=== PATIENT | female | born 1955 | race Caucasian/White ===

== ENCOUNTER 2016-08-03 07:07 | Inpatient (IN) | payer BC ==
[2016-07-12 08:24] VITALS: Ht 166.4 cm; Wt 138.8 kg
[2016-07-12 09:00] VITALS: BP_SYST 138; RESP 20; TEMP 97.8
[2016-08-03] VITALS (22 sets, daily range): BP systolic 94–192; RESP 16–23; TEMP 97–98.4
[~2016-08-03] VITALS: Ht 166.4 cm; Wt 138.8 kg
[2016-08-03] MEDS ORDERED: ROPIVACAINE 0.5% 139 MG, EPINEPHrine 1:1,000 0.2 MG, KETOROLAC INJ 30 MG, MORPHINE 10 MG SUBQ ONE ×4 (08:15)
[2016-08-03] MEDS ORDERED: CEFAZOLIN 3,000 MG in SODIUM CHLORIDE 0.9% 100 ML IV ONE (08:15)
[2016-08-03] MEDS ORDERED: Tranexamic Acid 100 MG in SODIUM CHLORIDE 0.9% 100 ML IV ONE ×4 (08:45)
[2016-08-03] MEDS ORDERED: LACT RINGERS 1,000 ML IV SCH ×2 (09:05→11:40)
[2016-08-03] MEDS ORDERED: GLYCOPYRROLATE 0.2 MG/ML VIAL IV ONE ×2 (09:05→10:10)
[2016-08-03] MEDS ORDERED: ONDANSETRON 4 MG VIAL IV ONE (09:05)
[2016-08-03] MEDS ORDERED: SCOPOLAMINE PATCH TRANSDERM ONE (09:05)
[2016-08-03] MEDS ORDERED: MIDAZOLAM 2 MG/2 ML INJ IV ONE ×2 (09:05→09:25)
[2016-08-03] MEDS ORDERED: LIDOCAINE 1% BUFFERED 1 ML SYR INTRADERM PRN (09:05)
[2016-08-03] MEDS ORDERED: MIDAZOLAM 2 MG/2 ML INJ ONE ×2 (09:24→09:28)
[2016-08-03] MEDS ORDERED: MEPERIDINE 25 MG/ML IV ONE (09:25)
[2016-08-03] MEDS ORDERED: ONDANSETRON 4 MG VIAL IV PRN ×2 (10:05→11:40)
[2016-08-03] MEDS ORDERED: MORPHINE 2 MG/ML SYR IV PRN (10:05)
[2016-08-03] MEDS ORDERED: MEPERIDINE 25 MG/ML IV PRN (10:05)
[2016-08-03] MEDS ORDERED: OXYCODONE 5 MG TAB PO PRN (10:05)
[2016-08-03] MEDS ORDERED: MORPHINE 4 MG/ML SYR IV PRN (10:05)
[2016-08-03] MEDS ORDERED: ROCURONIUM 50 MG VIAL IV ONE (10:10)
[2016-08-03] MEDS ORDERED: SUCCINYLCHOLINE 20 MG/ML VL IV ONE (10:10)
[2016-08-03] MEDS ORDERED: ESMOLOL 100 MG/10 ML VL IV ONE (10:10)
[2016-08-03] MEDS ORDERED: PROPOFOL 20 ML PER ML IV ONE (10:10)
[2016-08-03] MEDS ORDERED: NEOSTIGMINE 10 MG/10 ML VIAL IV ONE (10:10)
[2016-08-03] MEDS ORDERED: FENTANYL 100 MCG/2 ML AMP IV ONE (10:10)
[2016-08-03] MEDS ORDERED: ACETAMINOPHEN 1,000 MG/100 ML IV ONE (10:10)
[2016-08-03] MEDS ORDERED: LIDOCAINE 2% SYR 5 ML IV ONE (10:10)
[2016-08-03] MEDS ORDERED: KETAMINE INJ 50 MG/ML VIAL IV ONE (10:10)
[2016-08-03] MEDS ORDERED: BACITRACIN 50,000 UNITS INJ IRRIG ONE (10:16)
[2016-08-03] MEDS ORDERED: BUPIVACA/EPI 0.5% 50ML EPIDURAL ONE (10:17)
[2016-08-03] MEDS ORDERED: TEMAZEPAM 15 MG CAP PO PRN (11:40)
[2016-08-03] MEDS ORDERED: DIPHENHYDRAMINE 25 MG CAP PO PRN (11:40)
[2016-08-03] MEDS ORDERED: KETOROLAC 30 MG/ML VIAL IV PRN (11:40)
[2016-08-03] MEDS ORDERED: ACETAMINOPHEN 325 MG TAB PO PRN (11:40)
[2016-08-03] MEDS: DILAUDID 1 MG/ML AMP IV PRN ×2 (11:47→12:05)
[2016-08-03] MEDS ORDERED: DEXTROSE 50% SYRINGE 50 ML IV PRN (14:00)
[2016-08-03] MEDS ORDERED: GLUCAGON 1 MG VIAL IM PRN (14:00)
[2016-08-03] MEDS: BUPROPION SR 150 MG TAB PO SCH (14:29)
[2016-08-03] MEDS: amLODIPine 2.5 MG TAB PO SCH (14:29)
[2016-08-03] MEDS: LEVOTHYROXINE 0.15 MG TAB PO SCH (14:30)
[2016-08-03] MEDS: FLUOXETINE 20 MG CAP PO SCH (14:30)
[2016-08-03] MEDS: MORPHINE 2 MG/ML SYR IV PRN ×2 (14:48→20:21)
[2016-08-03] MEDS: CEFAZOLIN 2,000 MG in SODIUM CHLORIDE 0.9% 100 ML IV SCH ×2 (16:27→21:00)
[2016-08-03] MEDS: LISINOPRIL/HCTZ 10/12.5 TAB PO SCH (16:27)
[2016-08-03] MEDS ORDERED: SALINE FLUSH 10 ML FLUSH PRN (19:20)
[2016-08-03] MEDS: SALINE FLUSH 10 ML FLUSH SCH (20:00)
[2016-08-03] MEDS: PANTOPRAZOLE 40 MG TAB PO SCH (20:21)
[2016-08-03] MEDS: GABAPENTIN 600 MG TAB PO SCH (20:21)
[2016-08-03] MEDS: ROSUVASTATIN 20 MG TAB PO SCH (20:21)
[2016-08-03] MEDS: SENNA 8.6 MG TAB PO SCH (20:21)
[2016-08-03] MEDS: DOCUSATE SOD 100 MG CAP PO SCH (20:21)
[2016-08-03] MEDS: clonazePAM 0.5 MG TAB PO SCH (20:21)
[2016-08-04 03:11] VITALS: BP_SYST 105; RESP 18; TEMP 98.4
[2016-08-04] MEDS: CEFAZOLIN 2,000 MG in SODIUM CHLORIDE 0.9% 100 ML IV SCH ×2 (03:32→09:59)
[2016-08-04] MEDS: LEVOTHYROXINE 0.15 MG TAB PO SCH (06:20)
[2016-08-04] MEDS: SODIUM CHLORIDE 0.9% FLUSH BAG 500 ML IV SCH (06:20)
[2016-08-04] MEDS: FONDAPARINUX 2.5 MG SYR SUBQ SCH (06:21)
[2016-08-04 07:33] VITALS: BP_SYST 110; RESP 16; TEMP 97.4
[2016-08-04] MEDS: SALINE FLUSH 10 ML FLUSH SCH ×2 (08:11→19:13)
[2016-08-04] MEDS: MAG HYDROX 30 ML UDC PO SCH (08:12)
[2016-08-04] MEDS: POLYETHYLENE GLYCOL 17 GM PACKET PO SCH (08:13)
[2016-08-04] MEDS: GABAPENTIN 600 MG TAB PO SCH (08:14)
[2016-08-04] MEDS: DOCUSATE SOD 100 MG CAP PO SCH ×2 (08:14→22:09)
[2016-08-04] MEDS: amLODIPine 2.5 MG TAB PO SCH (08:14)
[2016-08-04] MEDS: FLUOXETINE 20 MG CAP PO SCH (08:14)
[2016-08-04] MEDS: LISINOPRIL/HCTZ 10/12.5 TAB PO SCH (08:14)
[2016-08-04] MEDS: SENNA 8.6 MG TAB PO SCH ×2 (08:14→22:09)
[2016-08-04] MEDS: BUPROPION SR 150 MG TAB PO SCH (08:14)
[2016-08-04] MEDS: SODIUM CHLORIDE 0.45% 1,000 ML IV SCH ×2 (09:59→17:59)
[2016-08-04] MEDS ORDERED: REMOVE TRANSDERMAL PATCH TOPICAL ONE (11:25)
[2016-08-04 11:40] VITALS: BP_SYST 107; RESP 16; TEMP 97.5
[2016-08-04] MEDS ORDERED: BISACODYL 10 MG SUPP RECTAL PRN (12:50)
[2016-08-04 16:02] VITALS: BP_SYST 116; RESP 16; TEMP 97.6
[2016-08-04 19:15] VITALS: BP_SYST 117; RESP 16; TEMP 97.3
[2016-08-04] MEDS ORDERED: SODIUM CHLORIDE 0.9% 500 ML IV ONE (19:35)
[2016-08-04] MEDS ORDERED: SODIUM CHLORIDE 0.45% 1,000 ML IV SCH (19:35)
[2016-08-04] MEDS: SODIUM CHLORIDE 0.9% 1,000 ML IV SCH (20:24)
[2016-08-04] MEDS: clonazePAM 0.5 MG TAB PO SCH (22:09)
[2016-08-04] MEDS: ROSUVASTATIN 20 MG TAB PO SCH (22:09)
[2016-08-04] MEDS: PANTOPRAZOLE 40 MG TAB PO SCH (22:09)
[2016-08-04 23:34] VITALS: BP_SYST 95; RESP 18; TEMP 97.6
[2016-08-05 03:54] VITALS: BP_SYST 127; RESP 16; TEMP 98.3
[2016-08-05] MEDS: SODIUM CHLORIDE 0.9% FLUSH BAG 500 ML IV SCH (05:08)
[2016-08-05] MEDS: SODIUM CHLORIDE 0.9% 1,000 ML IV SCH (05:08)
[2016-08-05] MEDS: LEVOTHYROXINE 0.15 MG TAB PO SCH (06:21)
[2016-08-05] MEDS: FONDAPARINUX 2.5 MG SYR SUBQ SCH (06:21)
[2016-08-05 07:28] VITALS: BP_SYST 104; RESP 20; TEMP 97.8
[2016-08-05] MEDS: SALINE FLUSH 10 ML FLUSH SCH ×2 (07:53→20:00)
[2016-08-05] MEDS: MAG HYDROX 30 ML UDC PO SCH (07:54)
[2016-08-05] MEDS: BUPROPION SR 150 MG TAB PO SCH (07:55)
[2016-08-05] MEDS: POLYETHYLENE GLYCOL 17 GM PACKET PO SCH (07:55)
[2016-08-05] MEDS: SENNA 8.6 MG TAB PO SCH ×2 (07:55→20:41)
[2016-08-05] MEDS: FLUOXETINE 20 MG CAP PO SCH (07:56)
[2016-08-05] MEDS: DOCUSATE SOD 100 MG CAP PO SCH ×2 (07:56→20:41)
[2016-08-05] MEDS: BETHANECHOL 25 MG TAB PO SCH ×2 (11:05→16:53)
[2016-08-05 11:43] VITALS: BP_SYST 105; RESP 20; TEMP 97.6
[2016-08-05] MEDS ORDERED: MISSING DOSE XX ONE ×2 (12:40→22:15)
[2016-08-05] MEDS: SODIUM CHLORIDE 0.45% IV SCH ×2 (12:48→22:37)
[2016-08-05] MEDS: SODIUM BICARB 8.4% IV SCH ×2 (12:48→22:37)
[2016-08-05 15:44] VITALS: BP_SYST 149; RESP 18; TEMP 98.4
[2016-08-05] MEDS: MORPHINE 2 MG/ML SYR IV PRN (15:49)
[2016-08-05 20:00] VITALS: BP_SYST 122; RESP 20; TEMP 99.8
[2016-08-05] MEDS: PANTOPRAZOLE 40 MG TAB PO SCH (20:41)
[2016-08-05] MEDS: ROSUVASTATIN 20 MG TAB PO SCH (20:41)
[2016-08-05] MEDS: clonazePAM 0.5 MG TAB PO SCH (20:41)
[2016-08-05] MEDS: MORPHINE 4 MG/ML SYR IV PRN ×3 (20:55→23:37)
[2016-08-06] VITALS: BP_SYST 113; RESP 20; TEMP 99.4
[2016-08-06] MEDS: MORPHINE 4 MG/ML SYR IV PRN ×3 (02:59→06:26)
[2016-08-06 03:45] VITALS: BP_SYST 105; RESP 22; TEMP 97.5
[2016-08-06] MEDS: SODIUM CHLORIDE 0.9% FLUSH BAG 500 ML IV SCH (05:54)
[2016-08-06] MEDS: BETHANECHOL 25 MG TAB PO SCH ×2 (06:25→11:43)
[2016-08-06] MEDS: LEVOTHYROXINE 0.15 MG TAB PO SCH (06:25)
[2016-08-06] MEDS: FONDAPARINUX 2.5 MG SYR SUBQ SCH (06:26)
[2016-08-06 07:28] VITALS: BP_SYST 150; RESP 18; TEMP 98.2
[2016-08-06] MEDS: POLYETHYLENE GLYCOL 17 GM PACKET PO SCH (08:24)
[2016-08-06] MEDS: DOCUSATE SOD 100 MG CAP PO SCH (08:24)
[2016-08-06] MEDS: MAG HYDROX 30 ML UDC PO SCH (08:24)
[2016-08-06] MEDS: SENNA 8.6 MG TAB PO SCH (08:24)
[2016-08-06] MEDS ORDERED: REMOVE SCOPALAMINE PATCH XX ONE (09:05)
[2016-08-06] MEDS: SALINE FLUSH 10 ML FLUSH SCH (09:08)
[2016-08-06] MEDS: BUPROPION SR 150 MG TAB PO SCH (09:38)
[2016-08-06] MEDS: FLUOXETINE 20 MG CAP PO SCH (09:38)
[2016-08-06] MEDS: SODIUM BICARB 8.4% IV SCH (10:00)
[2016-08-06] MEDS: SODIUM CHLORIDE 0.45% IV SCH (10:00)
[2016-08-06 11:38] VITALS: BP_SYST 149; RESP 18; TEMP 97.9
[2016-08-06 14:23] VITALS: BP_SYST 149; RESP 18; TEMP 97.9
== END 2016-08-06 15:22 | disposition home health service (06) | DRG 470 ==
LOC: ENPENDDIS 08:08 → SDS 08:08 → 2NO 12:30
PROVIDERS: ADMIT Internal Medicine; ATTEND Internal Medicine
PROC: 3E0T3BZ Introduction of Anesthetic Agent into Peripheral Nerves and Plexi, Percutaneous Approach (ICD-10-PCS; 2016-08-03)
PROC: 8E0YXBZ Computer Assisted Procedure of Lower Extremity (ICD-10-PCS; 2016-08-03)
PROC: 0SRC0J9 Replacement of Right Knee Joint with Synthetic Substitute, Cemented, Open Approach (ICD-10-PCS; principal; 2016-08-03 09:19)
CPT/HCPCS: 76770; 80048; 80053; 81003; 82570; 82947; 83036; 84300; 84439; 84443; 85014; 85018; 85025; 86850; 86900; 86901; 94762; 94799